=== PATIENT | female | born 1955 | race Caucasian/White ===

== ENCOUNTER 2020-11-22 09:47 | Inpatient (IN) | payer MEDICARE, SELFPAY ==
[2020-11-22] MEDS ORDERED: Albuterol Sulfate 2.5 mg/0.5 ml Neb ONE (10:04)
[2020-11-22 10:11] LABS: #Basophils 0.1 thou/uL (0.0-0.2); #Eosinphils 0.2 thou/uL (0.0-0.7); #Lymphocytes 2.6 thou/uL (1.20-3.40); #Monocytes 1.2 thou/uL (0.11-0.59); #Neutrophils 10.8 thou/uL (1.40-6.50); %Basophils 0.4 % (0.0-1.0); %Eosinophils 1.7 % (0.0-10.0); %Lymphocytes 17.6 % (21.0-51.0); %Monocytes 7.9 % (0.0-10.0); %Neutrophils 72.4 % (42.0-75.0); Hemoglobin 15.4 g/dL (12.0-16.0); Mean Corpuscular HGB CONC 32.9 g/dL (32.0-36.0); Mean Corpuscular Hemoglobin 31.7 pg (27.0-31.0); Mean Corpuscular Volume 96.3 fL (78.0-98.0); Platelet Count 202 thou/uL (130-400); Red Blood Cell (RBC) Count 4.86 mill/uL (4.20-5.40); White Blood Cell (WBC) Count 14.9 thou/uL (4.8-10.8)
[2020-11-22 10:28] LABS: ALT (SGPT) 13 U/L (8-55); AST (SGOT) 14 U/L (5-34); Albumin 3.9 g/dL (3.4-4.8); Alkaline Phosphatase 77 U/L (40-110); Anion Gap 15 mmol/L (10-20); BUN (Urea Nitrogen) 26 mg/dL (9.8-20.1); Bilirubin, Total 0.5 mg/dL (0.2-1.2); CK (CPK) 44 U/L (29-168); Calc. Creatinine Clearance 0 mL/min (70-130); Calcium 9.1 mg/dL (7.8-10.44); Carbon Dioxide 22 mmol/L (23-31); Chloride 107 mmol/L (98-107); Globulin 3.3 g/dL (2.4-3.5); Glucose 162 mg/dL (80-115); Lipase 15 U/L (8-78); Potassium 4.7 mmol/L (3.5-5.1); Protein, Total 7.2 g/dL (5.8-8.1); Sodium 139 mmol/L (136-145)
[2020-11-22] MEDS ORDERED: Ondansetron PF 4 MG/2 ML Vial IVP PRN (11:21)
[2020-11-22] MEDS ORDERED: Acetaminophen 325 MG TAB PO PRN (11:21)
[2020-11-22] MEDS ORDERED: Ondansetron ODT 4 MG TAB PO PRN (11:21)
[2020-11-22 11:23] LABS: SARS-CoV-2 NAA Rapid Test Not Detected (NotDetected)
[2020-11-22] MEDS ORDERED: Guaifenesin DM 100-10/5 ML UDCUP PO PRN (11:23)
[2020-11-22] MEDS ORDERED: Bacteriostatic Water 30 ML VIAL FS PRN (11:45)
[2020-11-22] MEDS ORDERED: methylPREDNISolone Sod Succ 40 MG VIAL IVP SCH (12:00)
[2020-11-22] MEDS ORDERED: methylPREDNISolone Sod Succ 40 MG VIAL ONE (13:31)
[2020-11-22] MEDS: Nicotine 14 MG PATCH TD SCH (13:31)
[2020-11-22] MEDS: methylPREDNISolone Sod Succ 40 MG VIAL IVP SCH ×3 (13:31→23:01)
[2020-11-22] MEDS ORDERED: Nicotine 14 MG PATCH ONE (13:32)
[2020-11-22 14:54] LABS: Troponin I Less than 0.010 ng/mL (< 0.028)
[2020-11-22 15:41] VITALS: BMI 31.6
[2020-11-22 16:47] LABS: Troponin I Less than 0.010 ng/mL (< 0.028)
[2020-11-22] MEDS: Carvedilol 6.25 MG TAB PO SCH (20:16)
[2020-11-22] MEDS: guaiFENesin ER 600 MG TAB PO SCH (20:17)
[2020-11-22] MEDS: Famotidine 20 MG TAB PO SCH (20:17)
[2020-11-22] MEDS ORDERED: Atorvastatin Calcium 10 MG TAB PO SCH (21:00)
[2020-11-22] MEDS: Benzonatate 100 MG CAP PO PRN (23:01)
[2020-11-23 03:51] LABS: Hemoglobin 14.1 g/dL (12.0-16.0); Mean Corpuscular HGB CONC 33.4 g/dL (32.0-36.0); Mean Corpuscular Hemoglobin 33.1 pg (27.0-31.0); Mean Platelet Volume 10.2 fL (7.4-10.4); Platelet Count 149 thou/uL (130-400); RBC Distribution Width 12.9 % (11.5-14.5); Red Blood Cell (RBC) Count 4.26 mill/uL (4.20-5.40); White Blood Cell (WBC) Count 9.4 thou/uL (4.8-10.8)
[2020-11-23 04:08] LABS: Anion Gap 12 mmol/L (10-20); BUN (Urea Nitrogen) 23 mg/dL (9.8-20.1); Calc. Creatinine Clearance 95 mL/min (70-130); Calcium 8.6 mg/dL (7.8-10.44); Carbon Dioxide 24 mmol/L (23-31); Chloride 106 mmol/L (98-107); Glucose 168 mg/dL (80-115); Sodium 137 mmol/L (136-145)
[2020-11-23 04:14] LABS: Lymphocytes 11 % (21-51); MDiff Complete? YES; Neutrophil 89 % (42-75); Platelet Morphology Comment Appears Adequate
[2020-11-23] MEDS ORDERED: Levothyroxine 175 MCG TAB PO SCH (06:00)
[2020-11-23] MEDS: methylPREDNISolone Sod Succ 40 MG VIAL IVP SCH ×4 (06:03→23:04)
[2020-11-23] MEDS ORDERED: Aspirin 81 mg Enteric Coated Tablet PO SCH (09:00)
[2020-11-23] MEDS: Famotidine 20 MG TAB PO SCH ×2 (09:59→21:09)
[2020-11-23] MEDS: Carvedilol 6.25 MG TAB PO SCH ×2 (10:00→21:09)
[2020-11-23] MEDS: guaiFENesin ER 600 MG TAB PO SCH ×2 (10:00→21:09)
[2020-11-23] MEDS: PARoxetine 20 MG TAB PO SCH (10:01)
[2020-11-23] MEDS: Amlodipine 10 MG TAB PO SCH (10:02)
[2020-11-23] MEDS: Enoxaparin Sodium 40 MG/0.4 ML SYRINGE SC SCH (10:03)
[2020-11-23] MEDS: Benzonatate 100 MG CAP PO PRN ×2 (10:34→17:19)
[2020-11-23] MEDS: Nicotine 14 MG PATCH TD SCH (12:50)
[2020-11-23] MEDS: Mometasone 200 MCG/Formoterol 5 MCG 120 PUFF INHALER INH SCH (18:33)
[2020-11-23] MEDS ORDERED: Atorvastatin Calcium 20 MG TAB PO SCH (21:00)
[2020-11-24] MEDS ORDERED: Levothyroxine Sodium 100 MCG TAB PO SCH (06:00)
[2020-11-24] MEDS: methylPREDNISolone Sod Succ 40 MG VIAL IVP SCH ×2 (06:18→13:07)
[2020-11-24] MEDS: Mometasone 200 MCG/Formoterol 5 MCG 120 PUFF INHALER INH SCH (08:12)
[2020-11-24] MEDS ORDERED: Aspirin 325 mg Enteric Coated Tablet PO SCH (09:00)
[2020-11-24] MEDS: Carvedilol 6.25 MG TAB PO SCH (09:58)
[2020-11-24] MEDS: PARoxetine 20 MG TAB PO SCH (09:59)
[2020-11-24] MEDS: guaiFENesin ER 600 MG TAB PO SCH (10:02)
[2020-11-24] MEDS: Enoxaparin Sodium 40 MG/0.4 ML SYRINGE SC SCH (10:02)
[2020-11-24] MEDS: Amlodipine 10 MG TAB PO SCH (10:02)
[2020-11-24] MEDS: Famotidine 20 MG TAB PO SCH (10:03)
[2020-11-24] MEDS: Nicotine 14 MG PATCH TD SCH (10:04)
[2020-11-24 10:05] VITALS: BP 180/83
[2020-11-24 13:48] VITALS: TEMP 98.4
== END 2020-11-24 15:37 | disposition home or self-care (01) | DRG 189 ==
LOC: ERS 09:47 → ERHOLD 11:32 → IMCU/EMU 14:55
PROVIDERS: ADMIT Internal Medicine; ATTEND Family Medicine
PROC: 5A09357 Assistance with Respiratory Ventilation, Less than 24 Consecutive Hours, Continuous Positive Airway Pressure (ICD-10-PCS; principal; 2020-11-22)
DX: J96.01 Acute respiratory failure with hypoxia (principal); J44.1 Chronic obstructive pulmonary disease with (acute) exacerbation; I10 Essential (primary) hypertension; I25.10 Atherosclerotic heart disease of native coronary artery without angina pectoris; E78.5 Hyperlipidemia, unspecified; F17.210 Nicotine dependence, cigarettes, uncomplicated; F32.9 Major depressive disorder, single episode, unspecified; F12.10 Cannabis abuse, uncomplicated; D72.829 Elevated white blood cell count, unspecified; E03.9 Hypothyroidism, unspecified; Z20.822 Contact with and (suspected) exposure to COVID-19; Z88.8 Allergy status to other drugs, medicaments and biological substances; Z79.82 Long term (current) use of aspirin; Z79.899 Other long term (current) drug therapy; Z90.49 Acquired absence of other specified parts of digestive tract; Z90.710 Acquired absence of both cervix and uterus; Z98.890 Other specified postprocedural states; Z71.6 Tobacco abuse counseling
CPT/HCPCS: 0240U; 36415; 71045; 80048; 80053; 82550; 83605; 83690; 83880; 84443; 84484; 85025; 85379; 87040; 93005; 94640; 96365; 96366; J1650; J1956; J2920; J7611; J7620